=== PATIENT | female | born 1965 | race Caucasian/White ===

== ENCOUNTER 2019-10-20 12:18 | Emergency (ER) | payer OTHER, SELFPAY ==
[2019-10-20 12:40] VITALS: BP 130/69; PULSE 83; RESP 20; TEMP 37.1; O2SAT 99; BMI 24.7
--- NOTE | 2019-10-20 13:14 | DI.RAD.S_ITS ---
PROCEDURE: XR HAND RT MIN 3V INDICATIONS: hand injury TECHNIQUE: 3 views of the hand(s) acquired. COMPARISON: None. FINDINGS: Bones: No displaced fractures or dislocations. Carpal bones are normally aligned. No suspicious bony lesions. Moderate degenerative changes of the hand are most pronounced involving the joints of the thumb. Soft tissues: No suspicious soft tissue calcifications. IMPRESSION: No acute right hand fractures are evident. Dictated by: Robbi Fortune M.D. on 10/20/2019 at 12:24 Approved by: Robbi Fortune M.D. on 10/20/2019 at 12:31
[2019-10-20] MEDS: TET,DIPH,PERTUSS(ACELL),VAC/PF 0.5 ML SYRINGE IM (14:11)
[2019-10-20] MEDS: LIDO 1%/SOD BICARB 8.4% (10ML) 10 ML SYRINGE INJ (14:11)
--- NOTE | 2019-10-20 15:07 | ED_ITS ---
HPI - Wound/Laceration <[facility] - Last Filed: 10/20/19 15:11> General Chief Complaint: Wound/Laceration Stated Complaint: Right hand cut Time Seen by Provider: 10/20/19 13:07 Source: patient Mode of arrival: Ambulatory Limitations: no limitations History of Present Illness HPI narrative: The patient is a 53-year-old female current smoker who denies pertinent medical history presents with a chief complaint of a laceration for right hand. She does not know when her last tetanus was. She cut herself with a mandoline slicer while trying to cut onions. She states that the dressing has been applied and pressure was applied. She is concerned that she might need sutures. She is also concerned about infection as she was cutting onions and was exposed to fish bones. Related Data Allergies Allergy/AdvReac Type Severity Reaction Status Date / Time Penicillins Allergy Verified 10/20/19 12:40 Review of Systems <[facility] - Last Filed: 10/20/19 15:11> Review of Systems Narrative: GENERAL: Denies chills, fatigue, malaise, fever, sweats. HEENT: Denies sinus pain, ear pain, sore throat, difficulty swallowing, dizziness. RESPIRATORY: Denies dyspnea, cough, wheezing, hemoptysis, sputum. CARDIOVASCULAR: Denies chest pain, palpitations, orthopnea, edema, GASTROINTESTINAL: Denies nausea, vomiting, abdominal pain, diarrhea, constipation, melena. : Denies dysuria, frequency, incontinence, hematuria, urinary retention. MUSCULOSKELETAL: See HPI SKIN: See HPI NEUROLOGIC: Denies weakness, headache, numbness, change in speech, confusion, seizures, incoordination. PSYCHIATRIC: No concerning psychosocial issues. 12 point review of systems is negative except for those stated above Patient History <ERASTO Isaac - Last Filed: 10/20/19 15:11> Social History Smoking Status: Current every day smoker Smoking Status: Current every day smoker tobacco type: cigarettes Substance Use Type: does not use Exam <[facility] - Last Filed: 10/20/19 15:11> Narrative Exam Narrative: GENERAL: This is a well-nourished, well-developed patient, in no acute distress HEAD: Atraumatic. Normocephalic. No temporal or scalp tenderness. EYES: Pupils equal round and reactive. Extraocular motions intact. No scleral icterus. No injection or drainage. ENT: Nose without bleeding, purulent drainage or septal hematoma. Throat without erythema, tonsillar hypertrophy or exudate. Uvula midline. Airway patent. NECK: Trachea midline. No JVD or lymphadenopathy. Supple, nontender, no meningeal signs. CARDIOVASCULAR: Regular rate and rhythm RESPIRATORY: No cough. No increased respiratory effort. No accessory muscle use EXTREMITIES: Laceration as noted on skin exam. Full range of motion noted all fingers right hand. Able to flex and extend right thumb against resistance. Positive right radial pulse. Cap refill less than 2 seconds all fingers right hand. BACK: Nontender without deformity or crepitance. No flank tenderness. NEURO: AOx3. SKIN: 2 cm laceration noted at base of 1st digit of right hand on palmar aspect. U shaped flap laceration. Through dermis. No obvious muscle or tendon involvement. No obvious foreign bodies. Initial Vital Signs Initial Vital Signs: Vital Signs Temperature 98.8 F 10/20/19 12:40 Pulse Rate 83 10/20/19 12:40 Respiratory Rate 10/20/19 12:40 Blood Pressure 130/69 10/20/19 12:40 Pulse Oximetry 99 10/20/19 12:40 <Hunter Rodarte MD - Last Filed: 10/21/19 07:48> Initial Vital Signs Initial Vital Signs: Vital Signs Temperature 98.8 F 10/20/19 12:40 Pulse Rate 83 10/20/19 12:40 Respiratory Rate 10/20/19 12:40 Blood Pressure 130/69 10/20/19 12:40 Pulse Oximetry 99 10/20/19 12:40 Procedures <KAMRYN Isaac - Last Filed: 10/20/19 15:11> Laceration Repair Laceration 1: Site: upper extremity Side (If applicable): right Size (cm): 2 Description: flap Depth: simple, single layer Local Anesthetic: lidocaine 1% and with bicarb Amount of anesthesia used (mL): 4 Pre-repair: wound explored, irrigated extensively and deep structures intact (cleansed with hibiclense ) Skin layer closed with: nylon Size (cm): 4-0 Number of sutures: 5 Technique: simple, interrupted Course <KAMRYN Isaac - Last Filed: 10/20/19 15:11> Orders Ordered: Discontinued Medications Diphtheria/Tetanus/Acell Pertussis (Adacel) 0.5 ml IM .ONCE ONE Stop: 10/20/19 13:15 Last Admin: 10/20/19 14:11 Dose: 0.5 ml Documented by: CORNELIUS Lidocaine/Sodium Bicarbonate (Buffered Lidocaine 10 Ml Syr) 10 ml INJ NOW ONE Stop: 10/20/19 13:41 Last Admin: 10/20/19 14:11 Dose: 10 ml Documented by: CORNELIUS Vital Signs Vital signs: Vital Signs - 8 hr 10/20/19 12:40 Temperature 98.8 F Pulse Rate 83 Respiratory Rate 20 Blood Pressure 130/69 Pulse Oximetry 99 <Hunter Rodarte MD - Last Filed: 10/21/19 07:48> Orders Ordered: Discontinued Medications Diphtheria/Tetanus/Acell Pertussis (Adacel) 0.5 ml IM .ONCE ONE Stop: 10/20/19 13:15 Last Admin: 10/20/19 14:11 Dose: 0.5 ml Documented by: CORNELIUS Lidocaine/Sodium Bicarbonate (Buffered Lidocaine 10 Ml Syr) 10 ml INJ NOW ONE Stop: 10/20/19 13:41 Last Admin: 10/20/19 14:11 Dose: 10 ml Documented by: CORNELIUS Vital Signs Vital signs: Vital Signs - 8 hr 10/20/19 12:40 Temperature 98.8 F Pulse Rate 83 Respiratory Rate 20 Blood Pressure 130/69 Pulse Oximetry 99 MDM - Wound/Laceration <KAMRYN Isaac - Last Filed: 10/20/19 15:11> Imaging Data Extremity x-ray #1: Radiologist's Impression: [address] [place] [id number] XRay Report Signed Patient: Mechelle Barton LMR#: [id number] : 1965Acct:[id number] Age/Sex: 53 / FDate of Service: 10/20/19 Loc: ED Accession Number: [id number] Procedure: XR hand RT min 3V Ordering Provider: Nasreen Ernst PROCEDURE: XR HAND RT MIN 3V INDICATIONS: hand injury TECHNIQUE: 3 views of the hand(s) acquired. COMPARISON: None. FINDINGS: Bones: No displaced fractures or dislocations. Carpal bones are normally aligned. No suspicious bony lesions. Moderate degenerative changes of the hand are most pronounced involving the joints of the thumb. Soft tissues: No suspicious soft tissue calcifications. IMPRESSION: No acute right hand fractures are evident. Dictated by: Robbi Fortune M.D. on 10/20/2019 at 12:24 Approved by: Robbi Fortune M.D. on 10/20/2019 at 12:31 Discharge Plan Departure Patient Disposition: Home Clinical Impression: Laceration Discharge Date/Time: 10/20/19 15:16 Instructions: How to Care for a Laceration After Repair, DI for Laceration Repair, DI for Minor Laceration Activity Restrictions/Additional Instructions: You for trusting us with your care today Today we updated your tetanus As I discussed, your x-ray shows no acute fracture or retained foreign body I placed 5 sutures in her hand. Please monitor for signs and symptoms of infection such as redness, purulence drainage etcetera Please follow up for suture removal in approximately 7 days As discussed, do not submerge her hand into dirty water. Avoid hot tubs, pools, swimming, dishes etcetera as these can all increase your chance of infection Referrals: [facility] [Outside] Stand Alone Forms: Work Release Note <Hunter Rodarte MD - Last Filed: 10/21/19 07:48> [facility] I was immediately available in the department for consultation. This documentation has been reviewed and I agree with assessment and plan. Supervised by Hunter Rodarte MD
[2019-10-20 15:15] VITALS: BP 122/82; PULSE 88; RESP 18; O2SAT 99
--- NOTE | 2019-10-20 15:18 | PC.NURSE ---
tolerated procedure well. able to talk freely and joke with staff during suture repair.
== END 2019-10-20 15:16 | disposition home or self-care (01) ==
PROVIDERS: Emergency Provider Nurse Practitioner Family
DX: S61.411A Laceration without foreign body of right hand, initial encounter (principal); W26.8XXA Contact with other sharp object(s), not elsewhere classified, initial encounter; Z23 Encounter for immunization; Y99.0 Civilian activity done for income or pay
CPT/HCPCS: 12001; 73130; 90471; 99283; 99284; 90715